=== PATIENT | male | born 2000 | race Caucasian/White ===

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

== ENCOUNTER 2020-08-22 20:00 | Emergency (ER) | payer MEDICAID ==
[~2020-08-22] VITALS: Ht 185.4 cm; Wt 107.5 kg
[2020-08-22] MEDS ORDERED: LIDOCAINE-MPF 1%, 5ML INFIL ONE (23:30)
[2020-08-22] MEDS ORDERED: NEOSPORIN OINT. PKT 1 PACKET ONE (23:52)
[2020-08-23] VITALS: BP 115/74
== END 2020-08-23 00:24 | disposition home or self-care (01) ==
LOC: ED 23:45
DX: M79.674 Pain in right toe(s) (principal); L70.0 Acne vulgaris; Z72.9 Problem related to lifestyle, unspecified
CPT/HCPCS: 99283

== ENCOUNTER 2020-09-21 16:14 | Emergency (ER) | payer MEDICAID ==
[~2020-09-21] VITALS: Ht 182.9 cm; Wt 109.5 kg
[2020-09-21 16:40] VITALS: BP 135/85
[2020-09-21] MEDS ORDERED: IBUPROFEN 600 MG TABLET ONE (17:11)
[2020-09-21] MEDS ORDERED: IBUPROFEN 600 MG TABLET PO ONE (17:30)
== END 2020-09-21 17:16 | disposition home or self-care (01) ==
LOC: ED 16:30
DX: J00 Acute nasopharyngitis [common cold] (principal)
CPT/HCPCS: 99281